=== PATIENT | male | born 1950 | race African-American/Black ===

== ENCOUNTER 2018-09-28 01:14 | Inpatient (IN) ==
[2018-09-28] MEDS ORDERED: ONDANSETRON 4 MG/2 ML VIAL IV PRN (04:08)
[2018-09-28] MEDS ORDERED: ALBUTEROL/IPRATROPIUM 3 ML NEB RESP TX PRN (04:13)
[2018-09-28] MEDS ORDERED: CLOPIDOGREL 300 MG TABLET PO ONE (04:13)
[2018-09-28] MEDS ORDERED: NITROGLYCERIN SL 0.4 MG TABLET SL PRN (04:13)
[2018-09-28 05:45] LABS: Basophils # 0.1 10*3/uL (0.0-0.2); Basophils % 0.5 % (0.0-0.8); Eosinophils # 0.1 10*3/uL (0.0-0.87); Eosinophils % 0.9 % (0.00-10.9); Hematocrit 47.7 VOL% (42.0-52.0); Hemoglobin 15.8 GM/DL (14.0-18.0); Immature Granulocytes % 0.5 %; Immature Granulocytes Absolute 0.06 #; Lymphocytes # 4.4 10*3/uL (1.4-4.0); Lymphocytes % 37.1 % (21.2-54.2); Mean Corpuscular HGB Conc 33.1 GM/DL (32-36); Mean Corpuscular Volume 92.3 FL (87-102); Monocytes % 8.1 % (1.7-12.7); NRBC # 0.02 10*3/uL; Neutrophils % 52.9 % (38.7-73.9); Platelet Count 158 T/CUMM (130-400); Red Blood Count 5.17 MC/CUMM (3.8-5.5); Red Cell Distribution Width 15.1 % (9.3-17.3); White Blood Count 11.8 T/CUMM (4-12)
[2018-09-28] MEDS: ENOXAPARIN 80 MG/0.8 ML SYRINGE SUBCUT SCH ×2 (05:45→16:28)
[2018-09-28] MEDS: METOPROLOL TARTRATE 25 MG TABLET PO SCH ×3 (05:45→20:58)
[2018-09-28 05:47] LABS: Albumin 3.2 G/DL (3.4-5.0); Bilirubin,Total 0.6 MG/DL (0.2-1.0); Calcium 8.4 MG/DL (8.5-10.1); Osmolality,Calculated 280.1 MOS/KG (273-304); Risk Ratio 2.3; Total Protein 6.8 G/DL (6.4-8.3); VLDL CHOLESTEROL 10.2 MG/DL
[2018-09-28] MEDS: THIAMINE 100 MG TABLET PO SCH (08:57)
[2018-09-28] MEDS: CLOPIDOGREL 75 MG TABLET PO SCH (08:57)
[2018-09-28] MEDS: PANTOPRAZOLE 40 MG TABLET PO SCH (08:57)
[2018-09-28] MEDS: ROSUVASTATIN 20 MG TABLET PO SCH (08:57)
[2018-09-28] MEDS ORDERED: amLODIPine 5 MG TABLET PO SCH (09:00)
[2018-09-28 11:03] LABS: Barbiturates Screen,Urine Negative (Negative); Benzodiazepines Screen,Urine Negative (Negative); Cannabinoid Screen,Urine Positive (Negative); Opiate Screen,Urine Negative (Negative); Phencyclidine Screen,Urine Negative (Negative)
[2018-09-28 12:03] LABS: Troponin I 0.529 NG/ML (0.00-0.045)
[2018-09-28] MEDS: amLODIPine 10 MG TABLET PO SCH (16:28)
[2018-09-28] MEDS ORDERED: FOLIC ACID 1 MG TABLET PO SCH (21:00)
[2018-09-29] MEDS: ENOXAPARIN 80 MG/0.8 ML SYRINGE SUBCUT SCH ×2 (04:03→16:33)
[2018-09-29 06:17] LABS: Basophils # 0.1 10*3/uL (0.0-0.2); Basophils % 0.4 % (0.0-0.8); Eosinophils # 0.1 10*3/uL (0.0-0.87); Eosinophils % 1.1 % (0.00-10.9); Hematocrit 52.8 VOL% (42.0-52.0); Hemoglobin 17.8 GM/DL (14.0-18.0); Immature Granulocytes % 0.5 %; Immature Granulocytes Absolute 0.06 #; Lymphocytes # 4.5 10*3/uL (1.4-4.0); Mean Corpuscular HGB Conc 33.7 GM/DL (32-36); Mean Corpuscular Volume 90.9 FL (87-102); Mean Platelet Volume 9.8 FL (9.6-12.0); Monocytes % 7.4 % (1.7-12.7); Neutrophils % 52.6 % (38.7-73.9); Platelet Count 169 T/CUMM (130-400); Red Blood Count 5.81 MC/CUMM (3.8-5.5); Red Cell Distribution Width 14.6 % (9.3-17.3); White Blood Count 11.7 T/CUMM (4-12)
[2018-09-29 06:31] LABS: Albumin 3.4 G/DL (3.4-5.0); Bilirubin,Total 0.9 MG/DL (0.2-1.0); Calcium 9.3 MG/DL (8.5-10.1); Osmolality,Calculated 270.8 MOS/KG (273-304); Total Protein 7.7 G/DL (6.4-8.3)
[2018-09-29] MEDS ORDERED: REGADENOSON 0.4 MG/5 ML SYRINGE IV ONE (09:18)
[2018-09-29] MEDS: CLOPIDOGREL 75 MG TABLET PO SCH (09:42)
[2018-09-29] MEDS: ROSUVASTATIN 20 MG TABLET PO SCH (09:42)
[2018-09-29] MEDS: PANTOPRAZOLE 40 MG TABLET PO SCH (09:43)
[2018-09-29] MEDS: METOPROLOL TARTRATE 25 MG TABLET PO SCH (09:43)
[2018-09-29] MEDS: amLODIPine 10 MG TABLET PO SCH (09:43)
[2018-09-29] MEDS: THIAMINE 100 MG TABLET PO SCH (09:43)
[2018-09-29 16:30] VITALS: BP 164/94
== END 2018-09-29 16:50 | disposition home or self-care (01) | DRG 897 ==
LOC: N.TELEN 02:39 → SUATTDRO 02:39
PROVIDERS: ADMIT Internal Medicine; ATTEND Hospitalist

== ENCOUNTER 2019-05-27 15:34 | Observation (INO) ==
[2019-05-27] MEDS ORDERED: METOPROLOL TARTRATE 5 MG/5 ML VIAL IV ONE (16:06)
[2019-05-27] MEDS ORDERED: METOPROLOL TARTRATE 5 MG/5 ML VIAL IV STA ×2 (16:12→16:17)
[2019-05-27 16:44] LABS: Alanine Aminotransferase 13 U/L (16-61); Albumin 3.4 G/DL (3.4-5.0); Alkaline Phosphatase 107 U/L (45-117); Aspartate Amino Transferase 15 U/L (0-37); Bilirubin,Total < 0.39 MG/DL (0.2-1.0); Blood Urea Nitrogen 12 MG/DL (7-18); Calcium 8.8 MG/DL (8.5-10.1); Estimated Glom Filtration Rate 90 ML/MIN; Glucose 101 MG/DL (74-106); Osmolality,Calculated 282.1 MOS/KG (273-304); Total Protein 7.9 G/DL (6.4-8.3); Troponin I < 0.015 NG/ML (0.00-0.045)
[2019-05-27 16:51] LABS: INR 0.9; PT Patient Result 10.3 SECS (9.6-12.2)
[2019-05-27 19:07] LABS: Basophils # 0.1 10*3/uL (0.0-0.2); Basophils % 0.6 % (0.0-0.8); Eosinophils # 0.1 10*3/uL (0.0-0.87); Eosinophils % 0.7 % (0.00-10.9); Hematocrit 49.4 VOL% (42.0-52.0); Hemoglobin 16.4 GM/DL (14.0-18.0); Immature Granulocytes % 0.4 %; Immature Granulocytes Absolute 0.04 #; Lymphocytes # 3.7 10*3/uL (1.4-4.0); Lymphocytes % 34.5 % (21.2-54.2); Mean Corpuscular HGB Conc 33.2 GM/DL (32-36); Mean Corpuscular Volume 89.8 FL (87-102); Mean Platelet Volume 9.2 FL (9.6-12.0); Monocytes % 7.3 % (1.7-12.7); Neutrophils % 56.5 % (38.7-73.9); Platelet Count 211 T/CUMM (130-400); Red Cell Distribution Width 17.6 % (9.3-17.3); White Blood Count 10.9 T/CUMM (4-12)
[2019-05-27] MEDS ORDERED: ACETAMINOPHEN 325 MG TABLET PO PRN (19:50)
[2019-05-27] MEDS ORDERED: ONDANSETRON 4 MG/2 ML VIAL IV PRN (19:50)
[2019-05-27] MEDS ORDERED: GLUCAGON 1 MG VIAL IM PRN (19:50)
[2019-05-27] MEDS ORDERED: DEXTROSE 10% 250 ML BAG IV PRN ×2 (19:50→20:00)
[2019-05-27] MEDS: POTASSIUM CHLORIDE 20 MEQ TABLET PO PRN (22:39)
[2019-05-27] MEDS: LACTATED RINGERS 1,000 ML IV SCH (22:41)
[2019-05-28 04:22] LABS: Barbiturates Screen,Urine Negative (Negative); Benzodiazepines Screen,Urine Negative (Negative); Cannabinoid Screen,Urine Positive (Negative); Opiate Screen,Urine Negative (Negative); Phencyclidine Screen,Urine Negative (Negative)
[2019-05-28] MEDS: POTASSIUM CHLORIDE 20 MEQ TABLET PO PRN (04:41)
[2019-05-28 08:33] LABS: Troponin I 0.019 NG/ML (0.00-0.045)
[2019-05-28 08:40] LABS: Risk Ratio 2.61; Thyroid Stimulating Hormone 1.84 uIU/ml (0.358-3.74); VLDL CHOLESTEROL 15.4 MG/DL
[2019-05-28] MEDS ORDERED: ASPIRIN EC 325 MG TABLET PO SCH (09:00)
[2019-05-28] MEDS: NICOTINE 21 MG/24 HR PATCH TRANSDERM SCH (11:51)
[2019-05-28] MEDS: amLODIPine 10 MG TABLET PO SCH (11:52)
[2019-05-28] MEDS: METOPROLOL TARTRATE 25 MG TABLET PO SCH ×2 (11:52→20:02)
[2019-05-28] MEDS: CLOPIDOGREL 75 MG TABLET PO SCH (11:52)
[2019-05-28] MEDS: LACTATED RINGERS 1,000 ML IV SCH ×2 (13:28→22:36)
[2019-05-28] MEDS ORDERED: HydrOXYzine PAMOATE 25 MG CAPSULE PO PRN (17:26)
[2019-05-29] MEDS: NICOTINE 21 MG/24 HR PATCH TRANSDERM SCH (09:33)
[2019-05-29] MEDS: amLODIPine 10 MG TABLET PO SCH (09:33)
[2019-05-29] MEDS: METOPROLOL TARTRATE 25 MG TABLET PO SCH (09:33)
[2019-05-29] MEDS: CLOPIDOGREL 75 MG TABLET PO SCH (09:33)
[2019-05-29 11:47] VITALS: BP 136/73
== END 2019-05-29 12:45 | disposition home or self-care (01) ==
LOC: N.ED 15:34 → N.EDINP 15:34 → N.5E 20:27 → N.2W 05-28 08:01
PROVIDERS: ADMIT Internal Medicine; ATTEND Internal Medicine